=== PATIENT | male | born 1960 | race Caucasian/White ===

== ENCOUNTER 2018-04-12 19:18 | Emergency (ER) | payer BC ==
[2018-04-12 20:24] VITALS: BP 146/96
--- NOTE | 2018-04-12 20:26 | UC ---
Bite Injury/Animal HPI - HPI Summary HPI Summary: Pt with tick to right abdomen Pt states "dug around to get it out" pt unsure how long attached, but states thinks 1-2 days, was "big" no concern for retained parts tdap utd No other complaints pt's medications reviewed this visit - History of Current Complaint Chief Complaint: LESIAkin Stated Complaint: TICK BITE Hx Obtained From: Patient, Family/Customs Director Severity Currently: None Pain Intensity: 0 Pain Scale Used: 0-10 Numeric - Allergies/Home Medications Allergies/Adverse Reactions: Allergies Allergy/AdvReac Type Severity Reaction Status Date / Time No Known Allergies Allergy Verified 04/12/18 20:24 PMH/Surg Hx/FS Hx/Imm Hx Previously Healthy: Yes Endocrine History: Diabetes - Surgical History Surgical History: Yes Surgery Procedure, Year, and Place: DETACHED RETINA 2007, KNEE REPLACEMENT - Family History Known Family History: Positive: Hypertension - Social History Lives: With Family Alcohol Use: None Substance Use Type: Marijuana Substance Use Comment - Amount & Last Used: USES MARIJUANA DAILY Smoking Status (MU): Never Smoked Tobacco Amount Used/How Often: ONLY SMOKES MARIJUANA - Immunization History Most Recent Influenza Vaccination: NONE Most Recent Tetanus Shot: 2009 Most Recent Pneumonia Vaccination: NONE Review of Systems Constitutional: Negative Skin: Other - removed tick All Other Systems Reviewed And Are Negative: Yes Physical Exam - Summary Physical Exam Summary: Vital Signs Reviewed: Yes A+Ox3, no distress Eyes: Conjunctiva Clear, JORDI. EOM intact and full ENT: Hearing grossly normal TM x 2 clear, mmoist, uvula midline, no exudate, no erythema Neck: Positive: Supple Respiratory: Positive: No respiratory distress, No accessory muscle use + CTA throughout no w/r Cardiovascular: RRR nl s1, s2 no m/r CBT <2 sec abd soft + BS nt/nd no guarding, no distension Musculoskeletal Exam: LAMAR x 4 without difficulty Strength Intact, ROM Intact Neurological: Positive: Alert, + sensation throughout Psychological: Positive: Normal Response To Family Skin: Positive: no rash, pt with small dime sized area of erythema with center scab - no fluctuance, warmth - RLQ abd Triage Information Reviewed: Yes Vital Signs: Initial Vital Signs Temp 97.9 F 04/12/18 20:20 Pulse 58 04/12/18 20:20 Resp 18 04/12/18 20:20 BP 146/96 04/12/18 20:20 Pulse Ox 97 04/12/18 20:20 Bite Injury Course/Dx - Course Course Of Treatment: pt removed tick this am - attached 1-2 days. wound appears healthy - no visible retained parts. pt concerned regarding lyme dx. d /w pt CDC recommendation regarding prophylaxis. pt requesting - will give 1 dose here. pt's tdap utd - Differential Dx/Diagnosis Provider Diagnoses: tick bite Discharge - Sign-Out/Discharge Documenting (check all that apply): Discharge/Admit/Transfer - Discharge Plan Condition: Stable Disposition: HOME Patient Education Materials: Tick Bite (ED) Referrals: Rick Garza MD [Primary Care Provider] - Additional Instructions: Keep area clean and dry. Return if you develop increased reddness, red streaking , drainage, odor cover your wound with a thin layer of antibiotics ointment and a bandaid Check yourself daily for ticks after you have been working in the [place] Contact your doctor or return with questions or concerns Approach to prophylaxis : According to the Infectious Diseases Society of [place] (IDSA) guidelines that recommend antibiotic prophylaxis only in patients who meet all of the following criteria: 1. Attached tick identified as an adult or nymphal I. scapularis tick (deer tick). 2. Tick is estimated to have been attached for 36 hours (by degree of engorgement or time of exposure). 3. Prophylaxis is begun within 72 hours of tick removal. Local rate of infection of ticks with B. burgdorferi is 20 percent if attached for over 48 hours (these rates of infection have been shown to occur in parts of [place], parts of the [facility], and parts of [place] and [place]). If you experience a tick and time of attachment is believed to be less than 36 hours, you may remove the tick with head intact and no need for prophylaxis. If over 36 hours, please come into UC. Prophylactic doxycycline is not recommended for ticks attached less than 36 hours. After discussion at today's visit, you were given the one time prophylatic for lyme disease - Billing Disposition and Condition Condition: STABLE Disposition: HOME
[2018-04-12] MEDS ORDERED: DOXYcycline CAP(*) 100 MG PO ONE (20:48)
== END 2018-04-12 21:00 | disposition home or self-care (01) ==
LOC: UCEAST 19:18
DX: S30.861A Insect bite (nonvenomous) of abdominal wall, initial encounter (principal); W57.XXXA Bitten or stung by nonvenomous insect and other nonvenomous arthropods, initial encounter; Y93.9 Activity, unspecified; Y92.9 Unspecified place or not applicable; E11.9 Type 2 diabetes mellitus without complications; Z96.659 Presence of unspecified artificial knee joint
CPT/HCPCS: 99212; A9270-GY; G0463

== ENCOUNTER 2018-11-06 09:18 | Emergency (ER) | payer BC ==
[2018-11-06] MEDS ORDERED: Albuterol HFA INHALER* 8 gm MDI INH ONE (09:58)
--- NOTE | 2018-11-06 09:59 | UC ---
Respiratory Complaint HPI - HPI Summary HPI Summary: The patient is a 58-year-old male that presents here with a cough 2 weeks. He states it is worse at night when he is laying down. He denies any URI symptoms. He also presents here complaining of a itchy rash it's been present on his hands and forearms for approximately 3 weeks. - History of Current Complaint Chief Complaint: UCRespiratory Stated Complaint: COUGH,RASH Time Seen by Provider: 11/06/18 09:47 Hx Obtained From: Patient Onset/Duration: Gradual Onset Timing: Constant Severity Initially: Mild Severity Currently: Moderate Pain Intensity: 0 Pain Scale Used: 0-10 Numeric Character: Cough: Nonproductive Aggravating Factors: Recumbent Position Associated Signs And Symptoms: Positive: Wheezing Related History: Similar Episode/Dx as: - bronchitis - Allergies/Home Medications Allergies/Adverse Reactions: Allergies Allergy/AdvReac Type Severity Reaction Status Date / Time No Known Allergies Allergy Verified 11/06/18 09:46 PMH/Surg Hx/FS Hx/Imm Hx Previously Healthy: Yes Cardiovascular History: Hypertension - refuses to take antihypertensives Respiratory History: Bronchitis - Surgical History Surgical History: Yes Surgery Procedure, Year, and Place: DETACHED RETINA 2007, KNEE REPLACEMENT - Family History Known Family History: Positive: Hypertension - Social History Alcohol Use: Rare Substance Use Type: Marijuana Substance Use Comment - Amount & Last Used: USES MARIJUANA DAILY Smoking Status (MU): Never Smoked Tobacco Amount Used/How Often: ONLY SMOKES MARIJUANA - Immunization History Most Recent Influenza Vaccination: NONE Most Recent Tetanus Shot: 2009 Most Recent Pneumonia Vaccination: NONE Review of Systems All Other Systems Reviewed And Are Negative: Yes Constitutional: Positive: Negative Skin: Positive: Rash Eyes: Positive: Negative ENT: Positive: Negative Respiratory: Positive: Cough Cardiovascular: Positive: Negative Gastrointestinal: Positive: Negative Genitourinary: Positive: Negative Motor: Positive: Negative Neurovascular: Positive: Negative Musculoskeletal: Positive: Negative Neurological: Positive: Negative Psychological: Positive: Negative Physical Exam Triage Information Reviewed: Yes Appearance: Well-Appearing, No Pain Distress, Well-Nourished Vital Signs: Initial Vital Signs Temp 98.6 F 11/06/18 09:43 Pulse 71 11/06/18 09:43 Resp 16 11/06/18 09:43 BP 162/112 11/06/18 09:43 Pulse Ox 100 11/06/18 09:43 Vital Signs Reviewed: Yes Eyes: Positive: Conjunctiva Clear ENT: Positive: Uvula midline. Negative: Hearing grossly normal - bilat hearing aids, Nasal congestion, Nasal drainage, Trismus, Muffled voice, Hoarse voice Neck: Positive: Supple, Nontender, No Lymphadenopathy Respiratory: Positive: No respiratory distress, No accessory muscle use, Wheezing Cardiovascular: Positive: RRR, No Murmur Musculoskeletal: Positive: ROM Intact, No Edema Neurological: Positive: Alert Skin Exam: Other - bilat hand dermatitis with R>L forearm eczema UC Diagnostic Evaluation - Laboratory O2 Sat by Pulse Oximetry: 100 - normal/not hypxic Respiratory Course/Dx - Differential Dx/Diagnosis Provider Diagnosis: Bronchospasm with bronchitis, acute, Eczema, Hand dermatitis, Hypertension Discharge - Sign-Out/Discharge Documenting (check all that apply): Patient Departure All imaging exams completed and their final reports reviewed: No Studies - Discharge Plan Condition: Stable Disposition: HOME Prescriptions: Triamcinolone 0.5% CREAM(NF) [Triamcinolone 0.5% CREAM*] 1 applic TOPICAL BEDTIME #1 tube Patient Education Materials: Eczema (ED), Hypertension (ED), Bronchospasm (ED) Referrals: Rick Garza MD [Primary Care Provider] - 1 Week (recheck in 1-2 weeks) Additional Instructions: use inhaler as directed recheck for new or worsening symptoms apply steroid cr to hands at bedtime/wear medication gloves (cotton) your BP was 162/112 - Billing Disposition and Condition Condition: STABLE Disposition: Home
[2018-11-06] MEDS ORDERED: Triamcinolone Acetonide* 40 MG/ML 1 ML VIAL IM ONE (10:01)
[2018-11-06 10:31] VITALS: BP 143/97
== END 2018-11-06 10:31 | disposition home or self-care (01) ==
LOC: UCEAST 09:18
DX: J20.9 Acute bronchitis, unspecified (principal); L30.9 Dermatitis, unspecified; I10 Essential (primary) hypertension
CPT/HCPCS: 96372; 99212; A9270-GY; G0463; J3301

== ENCOUNTER 2020-07-29 14:29 | Observation (INO) ==
[~2020-07-29 14:29] MED LIST: Buffered Lidocaine 1% SYRIN 1 ml INTRADERM ONE; Bupivacaine 0.25% SDV 30 ML ONE; Bupivacaine 0.5% 50 ML MDV VIAL ONE; Dexamethasone IV 4 MG/ML VIAL 1 ml VIAL ONE; Famotidine IV 10 MG/ML 2 ml VIAL (20 mg) IV ONE; Famotidine IV 10 MG/ML 2 ml VIAL (20 mg) ONE; Glycopyrrolate IV 0.2 MG/ML 1 ML VIAL ONE; HYDROmorphone 1 MG/1 ML SYRINGE ONE; Ketamine HCL 50 mg/ml 10 ml VIAL (500 MG) ONE; Lactated Ringers 1000 ml BAG 1,000 ML IV SCH; Lidocaine 1% MPF 5 ML VIAL ONE; Lidocaine 2% PF 5 ML VIAL ONE; Midazolam 2 mg/2 ml VIAL 1 mg/ml 2 ml VIAL (2 mg) ONE; Midazolam 5 mg/5 ml VIAL 1 mg/ml 5 ml VIAL (5 mg) ONE; Ondansetron 4 mg VIAL 2 MG/ML 2 ml VIAL ONE; Propofol 10 MG/ML 20 ML BTL ONE; ROPIVACAINE 5 MG/ML 30 ML BTL (0.5%) ONE; Sevoflurane BOTTLE ONE; Vancomycin 1,000 MG VIAL ONE; ceFAZolin 1 GM ADVAN 1 GM ADDV.VIAL IVPB ONE; ceFAZolin 2 GM PREMIX 2 GM/50 ML BAG ONE; fentaNYL 250 mcg/5 ml 50 MCG/ML 5 ml VIAL (250 MCG) ONE
[2020-07-29] MEDS ORDERED: Ondansetron ODT 4 mg TAB 4 MG TAB PO PRN (14:30)
[2020-07-29] MEDS ORDERED: Ondansetron 4 mg VIAL 2 MG/ML 2 ml VIAL IV PRN (14:30)
[2020-07-29] MEDS ORDERED: Lactulose 30 ml UDC PO PRN (14:30)
[2020-07-29] MEDS ORDERED: Magnesium Hydroxide LIQ 30 ML UDC PO PRN (14:30)
[2020-07-29] MEDS ORDERED: Morphine 2 MG/ML SYRINGE IV PRN (14:30)
[2020-07-29] MEDS ORDERED: diPHENhydraMINE 25 mg TAB PO PRN (14:30)
[2020-07-29] MEDS ORDERED: diPHENhydraMINE IV 50 MG/ML 1 ml VIAL (BENADRYL) IV PRN (14:30)
[2020-07-29] MEDS ORDERED: Naloxone 0.4 mg VIAL 0.4 mg/ml 1 ml VIAL IV PRN (14:36)
[2020-07-29] MEDS ORDERED: DiMENhydriNATE IV 50 mg/ml 1 ml VIAL IV PUSH PRN (14:36)
[2020-07-29] MEDS ORDERED: HYDROmorphone 1 MG/1 ML SYRINGE ONE (14:38)
[2020-07-29] MEDS: HYDROmorphone 1 MG/1 ML SYRINGE IV PRN ×5 (14:39→15:45)
[2020-07-29] MEDS: D5W 1/2 NS 1000 ml BAG 1,000 ML IV SCH (18:07)
[2020-07-29] MEDS: ceFAZolin 1 GM ADVAN 1 GM in NS 0.9% 50 ML 50 ML IVPB SCH (21:13)
[2020-07-29] MEDS: Magnesium Hydroxide LIQ 30 ML UDC PO SCH (21:18)
[2020-07-30] MEDS: D5W 1/2 NS 1000 ml BAG 1,000 ML IV SCH (03:24)
[2020-07-30] MEDS: ceFAZolin 1 GM ADVAN 1 GM in NS 0.9% 50 ML 50 ML IVPB SCH ×2 (03:26→11:59)
[2020-07-30 06:11] LABS: Hematocrit 30 % (42-52); Hemoglobin 10.6 g/dL (14.0-18.0); Mean Platelet Volume 8.2 fL (7.4-10.4); Platelet Count 197 10^3/uL (150-450)
[2020-07-30 06:28] LABS: BUN/Creatinine Ratio 16.4 (8-20); Calcium 8.4 mg/dL (8.6-10.3); EGFR African American 82.6 (>60); EGFR Non-African American 68.3 (>60)
[2020-07-30] MEDS ORDERED: Vitamin THERAPEUTIC TAB PO SCH (09:00)
[2020-07-30] MEDS: Magnesium Hydroxide LIQ 30 ML UDC PO SCH (09:24)
[2020-07-30 12:05] VITALS: BP 120/71
[2020-08-01] MEDS ORDERED: Scopolamine PATCH Remove NOTE PATCH OFF SCH (18:30)
== END 2020-07-30 15:32 | disposition home or self-care (01) ==
LOC: SSU 14:31 → INTOOBSV 14:31
PROVIDERS: ADMIT Orthopaedic Surgery; ATTEND Orthopaedic Surgery